=== PATIENT | female | born 1980 | race Caucasian/White ===

== ENCOUNTER 2025-05-03 14:05 | Outpatient (AMB) | payer OTHER, SELFPAY ==
--- OUTSIDE RECORDS SUMMARY | 2025-05-02 15:00 | XMS_ITS | Encounter Summary ---
Author Organization [facility] Address [address] [facility] [address] [place] [address] Phone Care Team Providers Care Bulk Picker Name Role Phone Chavez Hunter MD Unavailable [email or web address] Neli Padilla MD Primary Care Provider [phone] Encounter Details Date Type Department Care Team (Late st Contact Info) Description 05/02/2025 3:00 PM EST Telemedicine [facility] [address] [place] [address] Layla Lea, [employer] [address] [facility] [place] [address] [email or web address] Syncope, unspecified syncope type (Primary Dx) Social History Tobacco Use Types Packs/Day Years Used Date Smoking Tobacco: Every Day Cigarettes 0.3 23.6 Started: 09/2001 Smokeless Tobacco: Never Alcohol Use Standard Drinks/Week Comments Never 0 (1 standard drink = 0.6 oz pur e alcohol) few times per year at most Child or Family Care Answer Date Record ed Do you have problems with on e of the following making it difficult for you to work, study, or receive health care? Yes 01/03/2021 Education Answer Date Recorded Are you interested in more education? Not on constance e 01/07/2023 Are you concerned about learning? Not on file 01/07/2023 No 01/07/2023 No 01/07/2023 Food Answer Date Recorded Within the past 6 months we worried whether our food would run out before we got money to buy more. Never True 01/03/2021 Within the past 6 months the food we bought just didn't last and we didn't have enough money to get more. Never True Residential Stability Answer Date Recor ded What is your housing situation today? I have farhan sing 01/03/2021 How many times have you move d in the past 12 months? Zero (I did not move) 01/03/2021 06 Are you worried that in t he next 2 months, you may not have your own housing to live in? No 01/03/2021 Paying for Meds Answer Date Recorded Do you have trouble paying for medicines? Yes 01/03/2021 Paying Utility Bills Answer Date Record ed Do you have trouble paying your heating or elect ricity bill? No 01/03/2021 Transportation Answer Date Recorded Has the lack of transportati on kept you from medical appointments or from getting medications? No 01/03/2021 Unemployment Answer Date Recorded Are you currently unemployed or working on a part-time or temporary basis, and looking for work? No 01/03/2021 Digital Access Answer Date Recorded No 11/22/2022 No 11/22/2022 Reliable internet access at home? Not on file 11/22/2022 Device with a working camera? Not on file Intimate Partner Violence Answer Date R ecorded Are you denied basic needs s uch as food, clothing, or medical care? No 02/13/2024 In the past 12 months have y ou been in a relationship with a person who hurts, threatens, or tries to control you? No 02/13/2024 Are you denied basic needs s uch as food, clothing, or medical care? No 02/13/2024 In the past 12 months have y ou been in a relationship with a person who hurts, threatens, or tries to control you? No 02/13/2024 Comments No Sex and Gender Information Value Date Recorded Sex Assigned at Female 01/03/2021 8:09 AM EDT Legal Sex Female 9:18 PM EDT Gender Identity Female 01/03/2021 8:09 AM EDT Sexual Orientation Straight 01/03/2021 8: 09 AM EDT documented as of this encounter Patient Instructions * Patient Instructions* Layla Lea CNP - 05/02/2025 3:00 PM EST [facility] You were evaluated by [facility]. If you have any additional questions after your visit, please call [facility] Careat [phone] between the hours of 9am-9pm. If you wish to be evaluated in person for ongoing symptoms, please contact your Primary Care Physician or visit a [facility]gent Care site. [email or web address] in this encounter Progress Notes * Layla Lea CNP - 05/02/2025 3:00 PM EST Images from the original note were not included. Subjective: Patient ID: Monica Don is a 44 y.o. female. I obtained verbal consent from the patient or their proxy to record this visit for purposes of producing a draft of the encounter documentation. Monica Don is a 44 year old female presents with dizziness, headache and fainting. She experienced an episode of dizziness and fainting last night around 10:30 PM after eating dinner late. Upon standing, she felt foggy, with echoing sounds and clogged ears. Attempting to yawn to clear her ears,she became very dizzy, and her vision went completely black. She sat down, feeling her head spinning and foggy, and later attempted to go upstairs but fell, hitting her head on the wall and briefly losing consciousness. Her boyfriend found her and placed her in a supine position. She did not experience head pain but felt out of it, and her ears remained clogged and foggy. This morning, she managed to get her son to school but continued to feel as if she was underwater, with her ears feeling thesame. Head movement exacerbated her symptoms, causing her vision to go black, and she experienced chest pain on the right side, which has since resolved. She initially thought the chest pain was indigestion. she experienced pain in the back of her neck, which she attributed to a headache, and took her nighttime medications, including prazosin, hydroxyzine, and two Tylenol, about half an hour before the dizziness began. She continues to feel very dizzy, and feeling like she might black out again. She reports no history of blood clots or cardiac issues and describes this as random occurrence. She has high cholesterol. She denies nausea or vomiting, which she typically experiences with vertigo,a condition she has had in the past. She has been experiencing pain in her right leg, from the middle thigh to the hip, over the past few days, which she attributes to compensating for a knee issue. She is recovering from a head cold that lasted a couple of weeks. She reports no speech changes. Sheexperiences numbness and tingling in her hands, which she attributes to carpal tunnel syndrome. Pertinent negatives: seizure activity, nausea, vomiting, amnesia, weakness/numbness, trouble movingeyes, difficulty with speech or ambulation, clear rhinorrhea, ear discharge, neck stiffness, anticoagulation, drug/etoh intoxication during injury, or h/o serious head injury or concussions. Patient Active Problem List: Fibromyalgia Spondylosis of cervical region without myelopathy or radiculopathy Occipital neuralgia of left side Lumbar radiculitis Low back pain Tear of medial meniscus of right knee, current Right carpal tunnel syndrome Localized osteoarthritis of left knee PTSD (post-traumatic stress disorder) Bipolar affective disorder in remission Endometriosis Hyperhidrosis Acute hepatitis Right upper quadrant pain Menorrhagia with irregular cycle Dysmenorrhea Gallbladder disease Calculus of gallbladder and bile duct without cholecystitis or obstruction Current Outpatient Medications Ordered in [facility]: atorvastatin (LIPITOR) 10 MG tablet, Take 1 tablet (10 mg total) by mouth daily. hydrOXYzine (VISTARIL) 25 MG capsule, Take 25 mg by mouth nightly at bedtime. levothyroxine (SYNTHROID, LEVOTHROID) 175 MCG tablet, Take 1 tablet (175 mcg total) by mouth every morning. prazosin (MINIPRESS) 1 MG capsule, Take 1 mg by mouth nightly at bedtime. ZOLOFT 25 mg tablet, Take 25 mg by mouth daily. Allergy: -- Clarithromycin -- Swelling -- Trouble breathing, very significant swelling Other reaction(s): hives anaphylactic -- Erythromycin -- Hives and Rash -- difficulty breathing -- Latex -- Hives and Rash -- hives difficulty breathing Review of Systems Eyes: Positive for unexpected vision change. Cardiovascular: Positive for chest pain (resolved). Gastrointestinal: Positive for nausea. Negative for diarrhea and vomiting. Neurological: Positive for dizziness, syncope and headaches. Musculoskeletal: Positive for neck pain. There were no vitals filed for this visit. Objective: Physical Exam Constitutional: General: She is not in acute distress. Appearance: Normal appearance. She is not ill-appearing or toxic-appearing. HENT: Head: Normocephalic and atraumatic. Right Ear: Hearing normal. Left Ear: Hearing normal. Nose: Nose normal. Mouth/Throat: Lips: Drew. Pulmonary: Effort: Pulmonary effort is normal. No respiratory distress. Comments: Speaking in full sentences. No audible wheezing. Neurological: General: No focal deficit present. Mental Status: She is alert and oriented to person, place, and time. Psychiatric: Attention and Perception: Attention normal. Mood and Affect: Mood normal. Behavior: Behavior normal. Behavior is cooperative. Thought Content: Thought content normal. Judgment: Judgment normal. No results found for this visit on 05/02/25. Procedure: Procedures Assessment/Plan: Diagnosis Plan 1. Syncope, unspecified syncope type Assessment and Plan: 44 y.o female presents with acute episode of dizziness and syncope with brief loss of consciousness, occurring after standing up last night after dinner around 10:30pm. Symptoms include foggy head, echoing sounds, dizziness, and blacking out vision. No history of cardiac issues or blood clots. Symptoms persist with movement, causing black tunnel vision. No nausea, vomiting, or speech changes. Recent head cold may contribute to ear pressure and imbalance. On virtual exam, patient is alert and oriented x3, no acute distress, no pallor/diaphoresis and communicating appropriately in full sentences without mental status changes. Discussed differential diagnosis including but not limited to vasovagal syncope, vertigo, vestibular migraine, meniere's disease, stroke, cerebrovascular or cardiopulmonary etiology. Given presentation with acute onset on dizziness, vision and hearing changes and syncope episode, recommended further evaluation at emergency room for brain imaging (MRI or CT scan) to rule out severe concerns such as TIA or cardiopulmonary etiology. Advised use of hlqa-ndo-drbasut medications like Tylenol or ibuprofen for headache management. Patient agrees to proceed to [facility] ER for further evaluation. Follow-up, supportive care, ED precautions provided verbally and in AVS. Patient/guardian verbalized understanding of/agreement with assessment & plan; stated all questions answered. This telemedicine encounter was conducted virtually using HIPAA compliant videoconferencing technology. Portions of the exam reflect limitations in the virtual environment and may be limited to camera quality. documented in this encounter Plan of Treatment Upcoming Encounters Date Type Department Care Team (Late st Contact Info) Description 05/05/2025 3:40 PM EST Office Visit [facility] [address] [facility] [address] [place] [address] Neli Padilla MD [address] [facility] [address] [place] [address] [email or web address] documented as of this encounter Visit Diagnoses Diagnosis Syncope, unspecified syncope type- Primary documented in this encounter Additional Health Concerns Assessment Noted Time PHQ-2 Depression Total Score: 2 01/04/20 21 7:54 AM EDT documented as of this encounter Care Teams Bulk Picker Relationship Specialty Start Date End Date Neli Padilla MD [address] [facility] [address] [place] [address] PCP - General Family Medicine 10/04/20 Chavez Hunter MD [email or web address] Historical LMR Provider 04/17/17 documented as of this encounter Additional Source Comments The information contained in this document represents components of the legal health record. It is not the complete legal health record.[facility]
--- NOTE | 2025-05-03 14:06 | AM.OFFWIN_ITS ---
Intake Vital Signs 05/03/25 14:13 Height 5 ft 6 in Weight 233 lb BMI 37.6 BP 112/72 Blood Pressure Location Lt brachial Position Sitting Pulse 73 Pulse Source Pulse Oximeter Temp 98.5 F Temp Source Oral Pulse Oximetry (%) 96 Oxygen Delivery Method Room Air Intake Visit Reasons: EP Dizziness, right side chest and shoulder pain Intake Note: pt presents with dizziness, right chest pain going into shoulder and muffled hearing after a fall 2 nights ago. states that she was having a normal evening and suddenly had black vision while going upstairs to bed and doesn't recall passing out - boyfriend saw her fall. States she went to ER- left after 17 hrs. Allergies clarithromycin (From BIAXIN) Allergy (Severe, Verified 05/03/25 14:13) ANAPHYLAXIS latex (LATEX) Allergy (Severe, Verified 05/03/25 14:13) SEVERE RASH Medication List - Last Reconciled 05/03/25 by Nazia Solano PA-C atorvastatin 10 mg PO DAILY hydroxyzine pamoate 25 mg PO DAILY PRN levothyroxine 175 mcg PO QAM prazosin 1 mg PO BEDTIME sertraline 25 mg PO DAILY Do you need a note to return to daycare/school/sports/work: Yes HPI HPI Comments History of Present Illness Details History of Present Illness - The patient is a 44-year-old female pr esenting with syncope, dizziness, temporary loss of vision, right-sided chest pain, and muffled hearing following a fall. she is not on a blood thinner. - The patient experienced a witnessed sy ncopal episode two nights ago while going upstairs to bed, resulting in a fall and head trauma. She had a normal day, eating and drinking like she normally does. Denies diabetes. - The patient hit her head on the wall d uring the fall, resulting in brief loss of consciousness, less than 1 minute by her boyfriends estimate - The patient reports persistent dizzine ss since the fall, with episodes of tunnel vision and blackout vision when turning her head to the left or looking up. - The patient describes chest pain radia ting to the shoulder, which she initially attributed to indigestion or high blood pressure. - The patient reports muffled hearing fo llowing the fall. - The patient has a history of a brain i njury from a previous head trauma years ago, which also resulted in black vision and syncope. - The patient had a virtual visit with h er primary care provider yesterday, who advised an emergency room visit for imaging, but she experienced a prolonged wait of 17 hours at [facility] ED without receiving any care so she left without treatment. Review of Systems - Neurological: Reports dizziness, black out vision, and muffled hearing. Denies any recent episodes of syncope since the initial fall. - Cardiovascular: Reports right-sided ch est pain radiating to the shoulder. Denies palpitations or orthopnea. All systems reviewed and are unremarkable except as noted in HPI Physical Exam General: Cooperative, healthy appearing, comfortable, no acute distress and well developed Orientation: Patient oriented x3 Limitations: Limitations noted when turning head to the left or looking up, causing dizziness and black vision Head: Normal to inspection, but history of head injury from a fall Ears: Muffled hearing noted after a fall Nose: Normal External nose present Face and sinus: Normal facial exam Eyes: Appearance normal, both eyes and all related structures, no nystagmus Neck: Normal visual inspection Respiratory: Normal respiratory effort and able to speak in complete sentences. Clear to auscultation throughout, no wheezes, rales and rhonchi. Cardiac: Regular rate and rhythm, Normal S1 and S2, no murmurs, rubs or gallops Skin: No rashes or lesions noted Neuro: Patient oriented x3, gait normal, but dizziness and black vision noted with certain head movements Extremities: Normal to inspection Physical Exam Vital Signs: Last Vital Signs Temp 98.5 F 05/03/25 14:13 Pulse 73 05/03/25 14:13 Pulse Ox 96 05/03/25 14:13 Oxygen Delivery Method Room Air 05/03/25 14:13 BMI result Body Mass Index 37.6 Assessment & Plan Assessment & Plan (1) Syncope: Code(s): R55 - Syncope and collapse Qualifiers: Syncope type: unspecified Qualified Code(s): R55 - Syncope and collapse Plan: Assessment and Plan Syncope, dizziness and temporary loss of vision - VSS, heart rate regular, didn't get EKG based on auscultation of regular rate for 1 minute, pt well appearing, PE unremarkable. - The patient experienced a syncopal episode likely related to head trauma. - A head CT is recommended to rule out any intracranial injury. - Given the history of head injury and previous brain trauma, a head CT is crucial to assess for any acute changes. - Patient will get a ride to the [facility] ED, called [facility] with expect, spoke to GILDA Bronson. Patient was informed and verbally consented to the use of an ambient scribe for clinic note documentation during this visit. (2) Loss of vision: Code(s): H54.7 - Unspecified visual loss Plan: as above Coding Level of Care Code New Pt Level 5 (70268) Diagnoses Syncope, unspecified syncope type R55 Syncope type: unspecified Loss of vision H54.7
[2025-05-03 14:13] VITALS: BP 112/72; PULSE 73; TEMP 36.9; O2SAT 96; BMI 37.6
--- OUTSIDE RECORDS SUMMARY | 2025-05-03 15:08 | XMS_ITS | Encounter Summary ---
Author Organization [facility] Address [address] [place] [address] Phone Care Team Providers Care Crop Production Advisor Name Role Phone Chavez Hunter MD Unavailable [email or web address] Neli Padilla MD Primary Care Provider [phone] Reason for Visit * Reason Comments Head Injury Chest Pain Encounter Details Date Type Department Care Team ([facility] Contact Info) Description 05/03/2025 3:08 PM EST Emergency [facility] [address] [place] [address] Social History Tobacco Use Types Packs/Day Years [...] your housing situation today? I have farhan ortega 01/03/2021 How many times have you move [...] AM EDT documented as of this encounter Last Filed Vital Signs Vital Sign Reading Time Taken Comments Blood Pressure 129/86 05/03/2025 3:28 PM EST Pulse 71 05/03/2025 3:28 PM EST Temperature 36 C (96.8 F) 05/03/2025 3:28 PM EST Respiratory Rate 19 05/03/2025 3:28 PM EST Oxygen Saturation 98% 05/03/2025 3:28 PM EST Inhaled Oxygen Concentration - - Weight 104.3 kg (230 lb) 05/03/2025 3:28 PM EST Height 167.6 cm (5' 6 ) 05/03/2025 3:28 PM EST Body Mass Index 37.12 05/03/2025 3:28 PM EST documented in this encounter Functional Status * Calculated C-SSRS Risk Score (Lifetime/Recent) Answer Date of Assessment Author No Risk Indicated 05/03/2025 3:30 PM EST Celena Benites ma, RN * [place] Suicide Severity Rating Scale (Screener/Recent Self-Report) Question Answer Date of Assessment Author 1. Wish to be (Past 1 Month) No 025 3:30 PM EST Emy Benites RN 2. Non-Specific Active Suici isabel Thoughts (Past 1 Month) No 05/03/2025 3:30 PM EST Emy Benites RN 6. Suicidal Behavior (Lifetime) No 3:30 PM EST Emy Benites RN documented as of this encounter ED Notes * Emy Benites RN - 05/03/2025 3:22 PM EST Pt here for eval of near syncope. Friday pt noted dizziness with standing then vision went tunnel vision then got lj and lj. At this time pt also noted C that starts on L side of chest,radiating through shoulder into base of neck. Pt attempted to go upstairs one step when she fell, striking the back of her head. Positive LOC approx less than 1 minute. No thinners. Friday afternoon, pt seen at [facility] ER, however, she left the ER this afternoon as she never seen aside from triage. On arrival, pt awake A&Ox4, NAD. Report with turning her head up is when her vision goes again. Pt reports some dizziness but improving since incident. No N/V. Headache rates 8/10, no tenderness opr obvious injury to posterior head. Pupils PERRLA. Neuro assessment intact. Resp even non labored, speaking in clear full sentences, managing secretions. Does still endorse CP radiating from L chest into L shoulder. Denies any additional concerns at this time. Appreciative of care. documented in this encounter Plan of Treatment Upcoming Encounters Date Type Department Care Team (Late st Contact Info) Description 05/05/2025 3:40 PM EST Office Visit [facility] [address] [place] [address] Neli Padilla MD [address] [facility] [facility] [address] [place], [place] [id number] [email or web address] Pending Results Name Type Priority Associated Diagnoses Date /Time Basic Metabolic Panel (BMP) Lab STAT 05/03/2025 4:10 PM EST Scheduled Orders Name Type Priority Associated Diagnoses Orde r Schedule Basic Metabolic Panel (BMP) Lab STAT Once for 1 Occur rences starting 05/03/2025 until 05/03/2025 Human Chorionic Gonadotropin (HCG), Urine Lab STAT Once f or 1 Occurrences starting 05/03/2025 until 05/03/2025 documented as of this encounter Procedures Procedure Name Priority Date/Time Associated Diagnosis Comments CBC AND DIFFERENTIAL STAT 05/03/2025 4:10 PM EST CBC AND DIFFERENTIAL STAT 05/03/2025 4:10 PM EST TROPONIN STAT 05/03/2025 4:[address] CERVICAL SPINE WITHOUT CONTRAST Routine 05/03/2025 4:[address] HEAD WITHOUT CONTRAST STAT 05/03/2025 4:00 PM EST documented in this encounter Results * CBC and Differential (05/03/2025 4:10 PM EST) WBC 10.80 4.00 - 11.00 K/uL 05/03/2025 4:47 PM [facility] RBC 4.92 4.00 - 5.20 M/uL 05/03/2025 4:47 PM [facility] Hemoglobin 14.4 12.0 - 16.0 g/dL 05/03/2025 4:47 PM [facility] Hematocrit 43.8 36.0 - 46.0 % 05/03/2025 4:47 PM [facility] MCV 89.0 80.0 - 100.0 fL 05/03/2025 4:47 PM [facility] MCH 29.3 27.0 - 31.0 pg 05/03/2025 4:47 PM [facility] MCHC 32.9 32.0 - 36.0 g/dL 05/03/2025 4:47 PM [facility] MPV 9.4 8.4 - 12.0 fL 05/03/2025 4:47 PM [facility] RDW-CV 14.3 11.5 - 14.5 % 05/03/2025 4:47 PM [facility] PLT 321 150 - 450 K/uL 05/03/2025 4:47 PM [facility] Neutrophils 54.2 % 05/03/2025 4:47 PM [facility] Lymphocytes 35.9 % 05/03/2025 4:47 PM [facility] Monocytes 6.3 % 05/03/2025 4:47 PM [facility] Eosinophils 2.9 % 05/03/2025 4:47 PM [facility] Basophils 0.5 % 05/03/2025 4:47 PM [facility] Imm Grans 0.2 % 05/03/2025 4:47 PM [facility] NRBC 0.0 <=0.0 /100 WBCs 05/03/2025 4:47 PM [facility] Absolute Neutrophils 5.86 1.92 - 7.60 K/uL 05/03/2025 4:47 PM [facility] Absolute Lymphocytes 3.88 0.72 - 4.10 K/uL 05/03/2025 4:47 PM [facility] Absolute Monocytes 0.68 0.16 - 1.10 K/uL 05/03/2025 4:47 PM [facility] Absolute Eosinophils 0.31 0.00 - 0.50 K/uL 05/03/2025 4:47 PM [facility] Absolute Basophils 0.05 0.00 - 0.15 K/uL 05/03/2025 4:47 PM [facility] Absolute Imm Grans 0.02 0.00 - 0.09 K/uL 05/03/2025 4:47 PM [facility] Absolute NRBC 0.00 <=0.00 K cells/uL 05/03/2025 4:47 PM [facility] Absolute Neutrophils 5.86 1.92 - 7.60 K/uL 05/03/2025 4:47 PM [facility] Comment:Automated cell count . Manual ANC may differ if performed. Diff Type Auto 05/03/2025 4:47 PM [facility] Blood (Blood) Venipuncture / Unknown 05/03/2025 4:10 PM EST 05/03/2025 4:42 PM EST us Tania Khurram LAB BLOOD BKR ORDERABLES Final R esult Performing Organization Address City/[facility]/ZIP Co de Phone Number [address] [address] * Troponin (05/03/2025 4:10 PM EST) Troponin-T HS Gen5 <6 0 - 9 ng/L 05/03/2025 5:02 PM [facility] Blood (Blood) Venipuncture / Unknown 05/03/2025 4:10 PM EST 05/03/2025 4:42 PM EST [facility] LAB BLOOD BKR ORDERABLES Final R esult Performing Organization Address City/[facility]/ZIP Co de Phone Number [address] [address] * CT CERVICAL SPINE WITHOUT CONTRAST (05/03/2025 4:00 PM EST) Anatomical Region Laterality Modality C-spine Computed Tomogra phy 05/03/2025 4:32 PM EST Impressions 05/03/2025 5:02 PM EST 1. No acute intracranial findings. 2. No acute fracture or traumatic malalignment of the cervical spine. Narrative 05/03/2025 5:[address] HEAD WITHOUT CONTRAST, CT CERVICAL SPINE WITHOUT CONTRAST Referring clinician's provided indication for this examination in [facility]: * Head trauma, mod-severe TECHNIQUE: CTs of the head and cervical spine were performed without intravenous contrast using tailored dose modulation techniques. Images were reconstructed in the axial, coronal, and sagittal planes. COMPARISON: None FINDINGS: HEAD: Brain Parenchyma: No midline shift, mass effect, parenchymal hemorrhage, or evidence of acute territorial infarct. Ventricular System and Extra-Axial Spaces: No extra-axial fluid collections. Basal cisterns are patent. No hydrocephalus. Osseous and Extracranial Structures: No calvarial fracture or significant soft tissue hematoma. No significant paranasal sinus disease. No orbital abnormality. CERVICAL SPINE: Alignment and Vertebrae: No traumatic malalignment. Vertebral bodies and posterior elements are intact. Discs and Endplates: No disc height loss or endplate irregularities. Other Findings: None. Procedure Note Kemi Chirinos MD - 05/03/2025 CT HEAD WITHOUT CONTRAST, CT CERVICAL SPINE WITHOUT CONTRAST Referring clinician's provided indication for this examination in [facility]: *Head trauma, mod-severe TECHNIQUE: CTs of the head and cervical spine were performed withoutintravenous contrast using tailored dose modulation techniques. Imageswere reconstructed in the axial, coronal, and sagittal planes. COMPARISON: None FINDINGS: HEAD: Brain Parenchyma: No midline shift, mass effect, parenchymal hemorrhage,or evidence of acute territorial infarct. Ventricular System and Extra-Axial Spaces: No extra-axial fluidcollections. Basal cisterns are patent. No hydrocephalus. Osseous and Extracranial Structures: No calvarial fracture or significantsoft tissue hematoma. No significant paranasal sinus disease. No orbitalabnormality. CERVICAL SPINE: Alignment and Vertebrae: No traumatic malalignment. Vertebral bodies andposterior elements are intact. Discs and Endplates: No disc height loss or endplate irregularities. Other Findings: None. IMPRESSION: 1. No acute intracranial findings. 2. No acute fracture or traumatic malalignment of the cervical spine. us Tania Paulson DO IMG CT XSPECIALTY ORDERABLES Fin al Result * CT HEAD WITHOUT CONTRAST (05/03/2025 4:00 PM EST) Anatomical Region Laterality Modality Head Computed Tomogra phy 05/03/2025 4:32 PM EST Impressions 05/03/2025 5:02 PM EST 1. No acute intracranial findings. 2. No acute fracture or traumatic malalignment of the cervical spine. Narrative 05/03/2025 5:[address] HEAD WITHOUT CONTRAST, CT CERVICAL SPINE WITHOUT CONTRAST Referring clinician's provided indication for this examination in [facility]: * Head trauma, mod-severe TECHNIQUE: CTs of the head and cervical spine were performed without intravenous contrast using tailored dose modulation techniques. Images were reconstructed in the axial, coronal, and sagittal planes. COMPARISON: None FINDINGS: HEAD: Brain Parenchyma: No midline shift, mass effect, parenchymal hemorrhage, or evidence of acute territorial infarct. Ventricular System and Extra-Axial Spaces: No extra-axial fluid collections. Basal cisterns are patent. No hydrocephalus. Osseous and Extracranial Structures: No calvarial fracture or significant soft tissue hematoma. No significant paranasal sinus disease. No orbital abnormality. CERVICAL SPINE: Alignment and Vertebrae: No traumatic malalignment. Vertebral bodies and posterior elements are intact. Discs and Endplates: No disc height loss or endplate irregularities. Other Findings: None. Procedure Note Kemi Chirinos MD - 05/03/2025 CT HEAD WITHOUT CONTRAST, CT CERVICAL SPINE WITHOUT CONTRAST Referring clinician's provided indication for this examination in [facility]: *Head trauma, mod-severe TECHNIQUE: CTs of the head and cervical spine were performed withoutintravenous contrast using tailored dose modulation techniques. Imageswere reconstructed in the axial, coronal, and sagittal planes. COMPARISON: None FINDINGS: HEAD: Brain Parenchyma: No midline shift, mass effect, parenchymal hemorrhage,or evidence of acute territorial infarct. Ventricular System and Extra-Axial Spaces: No extra-axial fluidcollections. Basal cisterns are patent. No hydrocephalus. Osseous and Extracranial Structures: No calvarial fracture or significantsoft tissue hematoma. No significant paranasal sinus disease. No orbitalabnormality. CERVICAL SPINE: Alignment and Vertebrae: No traumatic malalignment. Vertebral bodies andposterior elements are intact. Discs and Endplates: No disc height loss or endplate irregularities. Other Findings: None. IMPRESSION: 1. No acute intracranial findings. 2. No acute fracture or traumatic malalignment of the cervical spine. Tania Paulson DO IMG CT HEAD/NECK Final Result documented in this encounter Visit Diagnoses Not on filedocumented in this encounter Administered Medications Active Administered Medications - up to 3 most recent administrations Medication Order MAR Action Action Date Dose Rate Site sodium chloride (NS) 0.9 % syringe flush 3 mL 3 mL, Intravenous, As needed, line care, Starting on Fri05/03/25 at 1544, Per Institutional IV Line Care Policy. documented in this encounter Additional Health Concerns Assessment Noted Time PHQ-2 Depression Total Score: 2 01/04/20 21 7:54 AM EDT documented as of this encounter Care Teams Crop Production Advisor Relationship Specialty Start Date End Date Neli Padilla MD [address] [place] [address] [email or web address] PCP - General Family Medicine 10/04/20 Chavez Hunter MD [email or web address] Historical LMR Provider 04/17/17 documented as of this encounter Additional Source Comments The information contained in this document represents components of the legal health record. It is not the complete legal health record.[facility]
--- OUTSIDE RECORDS SUMMARY | 2025-05-03 17:07 | XMS_ITS | Clinical Summary ---
Author Organization [facility] Address [address] [place] [address] Care Team Providers Care Scaler Packer Name Role Phone Pao Badillo Primary Care Provider Unavailabl e Allergies Active Allergy Reactions Severity Noted Date Comments Clarithromycin 07/08/2017 Erythromycin 07/08/2017 Latex 07/08/2017 Active Problems Problem Noted Date Abnormal Pap smear of cervix 07/08/2017 Overview: 2006: abnormal 2015: normal pap Family History Medical History Relation Name Comments Alcohol Abuse Father cancer unknown Father hyperlipidemia Father Depression Mother Thyroid Disorder Mother endometriosis Mother hyperlipidemia Mother tachycardia Mother CA Breast Paternal Grandmother Diabetes Paternal Grandmother ovarian cancer Paternal Grandmother Relation Name Status Comments Father Mother Paternal Grandmother Social History Tobacco Use Types Packs/Day Years Used Date Smoking Tobacco: Never Assessed Sex Assigned at Date Recorded Not on file Plan of Treatment Health Maintenance Due Date Last Done Comments Covid-19 Vaccine (#1) 05/04/1983 TOBACCO CHECK/ADVISE 2000 DTAP/TDAP/TD (1 - Tdap) 2001 CHOLESTEROL SCREENING 2002 CERVICAL CANCER SCREENING 11/02/2003 BASELINE HEALTH EXAM 40-64 2022 MAMMOGRAM 2022 BMI CHECK/ADVISE 06/30/2024 INFLUENZA (#1) 2025 PNEUMOCOCCAL VACCINE FOR HIGH RISK PATIENTS (#1) 11/01 Care Teams Scaler Packer Relationship Specialty Start Date End Date Pao Badillo PCP - General Family Practice 06/18/17
--- OUTSIDE RECORDS SUMMARY | 2025-05-03 17:07 | XMS_ITS | Encounter Summary ---
Author Organization [facility] Address [address] [place] [address] Phone Care Team Providers Care Painter Spring Name Role Phone Chavez Hunter MD Unavailable [email or web address] Neli Padilla MD Primary Care Provider [phone] Encounter Details Date Type Department Care Team (Late st Contact Info) Description 05/03/2025 Procedure Pass [facility], Ct Scan - [address] [address] Social History Tobacco Use Types Packs/Day Years [...] AM EDT documented as of this encounter Functional Status * Calculated C-SSRS Risk Score (Lifetime/Recent) Answer Date of Assessment Author No Risk Indicated 05/03/2025 3:30 PM EST Celena Benites ma, RN * [place] Suicide Severity Rating Scale (Screener/Recent Self-Report) Question Answer Date of Assessment Author 1. Wish to be (Past 1 Month) No 025 3:30 PM EST Emy Benites RN 2. Non-Specific Active Suici isabel Thoughts (Past 1 Month) No 05/03/2025 3:30 PM EST Emy Benites RN 6. Suicidal Behavior (Lifetime) No 3:30 PM EST Emy Benites RN documented as of this encounter Plan of Treatment Upcoming Encounters Date Type Department Care Team (Late st Contact Info) Description 05/05/2025 3:40 PM EST Office Visit [facility] [address] [place] [address] Neli Padilla MD [address] [address] [email or web address] documented as of this encounter Visit Diagnoses Not on filedocumented in this encounter Additional Health Concerns Assessment Noted Time PHQ-2 Depression Total Score: 2 01/04/20 21 7:54 AM EDT documented as of this encounter Care Teams Painter Spring Relationship Specialty Start Date End Date Neli Padilla MD [address] [address] [email or web address] PCP - General Family Medicine 10/04/20 Chavez Hunter MD [email or web address] Historical LMR Provider 04/17/17 documented as of this encounter Additional Source Comments The information contained in this document represents components of the legal health record. It is not the complete legal health record.[facility]
--- OUTSIDE RECORDS SUMMARY | 2025-05-03 17:07 | XMS_ITS | Encounter Summary ---
Author Organization [facility] Address [address] [place] [address] Phone Care Team Providers Care Patient Accounts Coordinator Name Role Phone Chavez Hunter MD Unavailable [email or web address] Neli Padilla MD Primary Care Provider [phone] Encounter Details Date Type Department Care Team (Late st Contact Info) Description 02/13/2024 Procedure Pass [place] Admitting Dept - Virtual Department [address] [place] [address] Social History Tobacco Use Types Packs/Day Years [...] AM EDT documented as of this encounter Plan of Treatment Upcoming Encounters Date Type Department Care Team (Late st Contact Info) Description 05/05/2025 3:40 PM EST Office Visit [facility] [address] [place] [address] Neli Padilla MD [address] [address] [email or web address] documented as of this encounter Visit Diagnoses Not on filedocumented in this encounter Additional Health Concerns Assessment Noted Time PHQ-2 Depression Total Score: 2 01/04/20 21 7:54 AM EDT documented as of this encounter Care Teams Patient Accounts Coordinator Relationship Specialty Start Date End Date Neli Padilla MD [address] [address] PCP - General Family Medicine 10/04/20 Chavez Hunter MD [email or web address] Historical LMR Provider 04/17/17 documented as of this encounter Additional Source Comments The information contained in this document represents components of the legal health record. It is not the complete legal health record.[facility]
--- OUTSIDE RECORDS SUMMARY | 2025-05-03 17:07 | XMS_ITS | Encounter Summary ---
Author Organization [facility] Address [address] [place] [address] Care Team Providers Care Wind Tunnel Mechanic Name Role Phone Pao Badillo Primary Care Provider Unavailabl e Encounter Details Date Type Department Care Team Description 06/20/2017 Release of Information Medical Records [address] [place] [id number] Abstract, Provider Social History Tobacco Use Types Packs/Day Years Used Date Smoking Tobacco: Never Assessed Sex Assigned at Date Recorded Not on file documented as of this encounter Plan of Treatment Not on file documented as of this encounter Visit Diagnoses Not on filedocumented in this encounter Care Teams Wind Tunnel Mechanic Relationship Specialty Start Date End Date Pao Badillo PCP - General Family Practice 06/18/17 documented as of this encounter
--- OUTSIDE RECORDS SUMMARY | 2025-05-03 17:07 | XMS_ITS | Clinical Summary ---
Author Organization [facility] Address [address] [place] [address] Phone Care Team Providers Care Software Quality Engineer Name Role Phone Chavez Hunter MD Unavailable [email or web address] Neli Padilla MD Primary Care Provider [phone] Allergies Active Allergy Reactions Criticality Noted Date Comments Clarithromycin Swelling High 09/18/2016 Trouble breathing, very significant swelling Other reaction(s): hives anaphylactic Erythromycin Hives,Rash High 07/08/2017 difficulty breathing Latex Hives,Rash High 09/18/2016 hives difficulty breathing Medications hydrOXYzine (VISTARIL) 25 MG capsule Take 25 mg by mouth nightly at bedtime. 5 Active ZOLOFT 25 mg tablet Take 25 mg by mouth daily. Active prazosin (MINIPRESS) 1 MG capsule Take 1 mg by mouth nightly at bedtime. Active atorvastatin (LIPITOR) 10 MG tablet Take 1 tablet (10 mg total) by mouth daily. 90 tablet 1 5 Active levothyroxine (SYNTHROID, LEVOTHROID) 175 MCG tabletIndication s:Hypothyroidism , unspecified type Take 1 tablet (175 mcg total) by mouth every morning. 90 tablet 5 Active levothyroxine (SYNTHROID, LEVOTHROID) 175 MCG tabletIndication s:Hypothyroidism , unspecified type TAKE 1 TABLET BY MOUTH EVERY DAY IN THE MORNING 30 tablet 04/12/20 25 Discontinu ed(Reorder ) Active Problems Problem Noted Date Diagnosed Date Gallbladder disease 10/30/2024 Assessment & Plan (10/30/2024 6:02 PM EDT): Will get repeat labs, no signs of acute obstruction currently. Will get another US and await referral to general surgery Calculus of gallbladder and bile duct without cholecystitis or obstruction 10/30/2024 Menorrhagia with irregular cycle 02/13/2024 Dysmenorrhea 02/13/2024 Acute hepatitis 12/05/2023 Assessment & Plan (12/06/2023 5:48 PM EDT): Patient with acute liver injury in a pattern that most closely resembles acute alcoholic hepatitis with AST 2x ALT however she adamantly denies any significant alcohol use. She denies any significant tylenol use (2 over past week), denies episode of heat stroke/exhaustion, syncope or other possible markers of a hypoprofusion event. Other etiologies such as viral, wilsons dx, autoimmune, and autoimmune will need to be evaluated. While her story of acute pain and nausea/vomiting with preceding intermittent pain is consistent with GB dx imaging and labs are not. CT shows normal portal flow making veno-occlusive dx not likely MRCP pending. Case d/w GI and gen sx Plan -Hep A, B, C testing is pending, EBV ordered as well -Ceruloplasmin pending -EDWARD, anit-sm and LMK1 abs pending -Ferratin and TIBC pending -Lipids and A1C ordered -clear liquids Observe overnight, NPO after 4am in case EGD is considered. Right upper quadrant pain 12/05/2023 Assessment & Plan (12/06/2023 12:03 AM EDT): She seems very comfortable now. Will monitor clinically, heating pad PRN Neg stewart on exam, neg during US as well. PTSD (post-traumatic stress disorder) 01/03/2021 Bipolar affective disorder in remission 01/04/20 21 Assessment & Plan (01/03/2021 3:00 PM EDT): Stable currently, continue therapy and current medications. Endometriosis 01/03/2021 Overview (01/03/2021): Diagnosed at age 20 Assessment & Plan (01/03/2021 2:59 PM EDT): Has failed many cnventional treatment. I would like for her to establish with gynecology, I have sent a referral in for her. Hyperhidrosis 01/03/2021 Assessment & Plan (01/03/2021 3:00 PM EDT): My best guess is that this is due to the Wellbutrin, as she started the Wellbutrin at the same time as the sweating started. It is a known side effect. However I am going to refer her over to dermatology to see if they can offer anything in addition. Localized osteoarthritis of left knee 12/20/2020 Assessment & Plan (12/20/2020 4:27 PM EDT): Problems with the left knee may be a lateral meniscal tear, patellofemoral disorder or a flare of osteoarthritis. She will have an x-ray of the left knee we will do an intra-articular corticosteroid injection. I will get back to her by phone call. I explained to her today if there is no sustained improvement we may need to do an MRI to rule out internal derangement. Also if it turns out that it is predominantly patellofemoral disorder then she may benefit from physical therapy with LowDye taping. Right carpal tunnel syndrome 08/23/2020 Assessment & Plan (08/23/2020 3:30 PM EST): Chronic moderately severe painful carpal tunnel syndrome due to median nerve compression will be treated with splinting at night as well as intralesional corticosteroid injection today. I also made an appointment to see , a well-respected local hand product distribution specialist. Tear of medial meniscus of right knee, current 0 09/29/2019 Assessment & Plan (11/16/2019 12:02 PM EDT): Acute flare of pain in the right knee will be treated today with intra-articular cortisone. Assessment & Plan (09/29/2019 9:57 AM EDT): Symptoms of pain and instability in the right knee are suggestive but not diagnostic of internal derangement perhaps a small meniscal tear. We will get a weightbearing x-ray and full set of knee x-rays but it is safe for her to come to the office and in the meantime she will continue to use the external knee support. Low back pain 07/29/2018 Assessment & Plan (07/29/2018 8:56 AM EST): No evidence of radiculopathy in this patient who presents with acute low back pain. No direct trauma. Most likely etiology is muscular strain. An x-ray today, start her on a Medrol Dosepak, avoid OTC NSAIDs, give her 28 pills of hydrocodone to be taken as 1 every 6 hours as needed Lumbar radiculitis 03/16/2018 Assessment & Plan (03/16/2018 5:46 PM EDT): Patient does have sacroiliac dysfunction and lumbar spondylosis as evidenced on previous x-rays which I reviewed with her today from 2016 showing mild bilateral sacroiliac osteoarthritis as well as degenerative disc disease and facet arthropathy of a mild nature at L4-5 and L5-S1. Her reports today of pain radiating down the left leg with tingling and numbness and the physical exam showing slight diminution of her left knee reflex with positive straight leg raising on the left is suggestive of a entrapped lumbar nerve root either from a disc osteophyte complex or a herniated disc. Given the severity of her symptoms, an MRI of the lumbar spine will be ordered. I will call her with these results and make appropriate recommendations after I review the study. Fibromyalgia 05/01/2017 Assessment & Plan (12/20/2020 4:28 PM EDT): Multiple tender points on exam, morning stiffness, poor sleep, and generalized fatigue are all compatible with though not diagnostic of active fibromyalgia which will continue to be treated with recommendations towards low inflammatory diet, weight reduction, good sleep hygiene, continuance of trazodone at bedtime, hydrocodone as needed and to make sure her thyroid function is normal. She will have lab work drawn today. Previous lab work was reviewed and more than 50% of this 32-minute visit was spent in [id number] conversation coordinating my care with out of her primary care physician and other subspecialists. No visits with results within 3 Month(s) from this visit. Latest known visit with results is: No results found for any previous visit. Assessment & Plan (08/23/2020 3:30 PM EST): Active but stable. She is to continue Flexeril 10 mg nightly as needed. Vitamin D supplements. I am giving her a short course of hydrocodone to help with the severe pain from her carpal tunnel. We talked about good sleep hygiene and weight reduction. Assessment & Plan (09/29/2019 9:57 AM EDT): Continues with generalized morning stiffness and pain. No worse. Refilled hydrocodone and cyclobenzaprine today. No new symptoms or symptoms of inflammatory arthropathy. Assessment & Plan (03/16/2018 5:44 PM EDT): Patient still has fatigue, poor sleep, multiple tender points on exam and quite a bit of morning stiffness. There is no synovitis on exam. We talked about fibromyalgia, history, treatment, need for cardiovascular improvement, weight reduction low inflammatory diet core strengthening and current medication regimen. I reinforced the need for her to take vitamin D every day. Assessment & Plan (09/10/2017 2:01 PM EDT): Active but stable on current medications. Multiple tender points still exists. Nighttime sleep as well as morning stiffness and generalized fatigue has improved. She is on a clear diet and she has a vocational trainer who is helping her work out and she goes several times a week for both resistance training as well as cardio. This is definitely had a positive affect. Greater than 50% of this 28 minute visit was spent in [id number] conversation with the patient going over natural history and treatment of fibromyalgia, strategies for continued healthy weight reduction, and restarting her home exercise program. all questions were answered. Assessment & Plan (05/01/2017 12:53 PM EDT): Patient has quite a bit of pain throughout her body. 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 She has to wear backpack and she is quite a bit of alcohol and stooping reaching bending and climbing and this does not help her overall condition at all. After full discussion of risks and benefits she will be administered a trigger point injection into the right subscapular bursa and the medial aspect of the right trapezius muscle as well as an intra-articular corticosteroid injection into the right shoulder. Her gabapentin was increased to 1200 mg at bedtime and diclofenac was discontinued and she was started on 1200 mg of Daypro daily. Other medications will remain unchanged. Spondylosis of cervical arturo on without myelopathy or radiculopathy 05/01/2017 Assessment & Plan (09/10/2017 2:01 PM EDT): Still active but without radiculopathy or myelopathy. Cervical stretches and strengthening were discussed with her. Assessment & Plan (05/01/2017 12:53 PM EDT): Trigger point injection will be given into the painful area for referred pain from the cervical spine. Occipital neuralgia of left side 05/01/2017 Assessment & Plan (05/01/2017 12:54 PM EDT): She will continue to use ice on this area on a when necessary basis as well as paying attention to appropriate sleep hygiene. Encounters Date Type Department Care Team Description 05/03/2025 3:08 PM EST Emergency [facility] [address] [place] [address] 05/03/2025 Procedure Pass [facility], Ct Scan - [address] [address] 05/03/2025 Procedure Pass [facility], Ct Scan - [address] [address] 05/02/2025 3:00 PM EST Telemedicine Merged With [facility] [address] [place] [address] Layla Lea CNP Syncope, unspecified syncope type (Primary Dx) 04/01/2025 Refill [facility] [address] [place] [address] Noemi Mckeon CNP Medication Refill from Last 3 Months Immunizations Immunization Administration Dates Next Due COVID-19 (Pre-04/21) Moderna Vaccine, mRNA, PF 11/06/2020,10/09/2020 INFLUENZA, SPLIT VIRUS, TRIV ALENT W/ PRESERVATIVE IM 04/14/2018,04/04/2016,04/20/2014,2011,04/04/2011,04/12/2010,04/15/2009 Influenza Quadrivalent Prese rvative Free IM 05/06/2021 Tdap 04/12/2010 Family History Medical History Relation Comments Thyroid disease Father Medullary thyroi d Breast cancer Paternal Grandmother Cervical cancer Paternal Grandmother Relation Status Comments Father Paternal Grandmother Social History Tobacco Use Types Packs/Day Years Used Date Smoking Tobacco: Every Day Cigarettes 0.3 23.6 Started: 09/2001 Smokeless Tobacco: Never Tobacco Cessation:Ready to Q uit: Not Asked; Counseling Given: Not Answered Alcohol Use Standard Drinks/Week Comments Never 0 [...] Orientation Straight 01/03/2021 8: 09 AM EDT Last Filed Vital Signs Vital Sign Reading [...] Mass Index 37.12 05/03/2025 3:28 PM EST Plan of Treatment Upcoming Encounters Date Type Department Care Team (Late st Contact Info) Description 05/05/2025 3:40 PM EST [facility] [address] [place] [address] Neli Padilla MD [address] [facility] [address] [place] [address] [email or web address] Health Maintenance Due Date Last Done Comments HEPATITIS A VACCINES (1 of 2 - Risk 2-dose series) 2001 PNEUMOCOCCAL VACCINES (0-49 years) (1 of 2 - PCV) 2001 Adult Td,Tdap Booster 04/12/2020 04/12/2010 DEPRESSION SCREENING 01/03/2022 01/03/2021 MAMMOGRAM 2022 PAP SMEAR 04/18/2024 04/18/2021 TSH LEVEL 12/05/2024 12/06/2023, 05/31, 03/25/2023, Additional history exists INFLUENZA VACCINE (#1) 2025 , 04/14/2018, 04/04/2016, Additional history exists COVID-19 VACCINE ( season) 2025 05/06/2021, 11/06/2020, 10/09/2020 SMOKING Hx and SMOKELESS TOBACCO SCREENING 05/02/2026 05/02/2025 SCREENING FOR DIABETES 10/28/2027 10/27/2024, 2024 HIV ONE-TIME SCREENING (18-65 YEARS) Completed 03/20/2023 HEPATITIS C SCREENING Completed 12/06/2023 , 12/06/2023, 12/06/2023 HIB VACCINES Aged Out No longer eligi ble based on patient's age to complete this topic MENINGOCOCCAL VACCINES (ACWY) Aged Out No longer eligible based on patient's age to complete this topic MENINGOCOCCAL VACCINES (B) Aged Out N o longer eligible based on patient's age to complete this topic Medical Devices Not on file Procedures Procedure Name Priority Date/Time Associated Diagnosis Comments CBC AND DIFFERENTIAL STAT 05/03/2025 4:10 PM EST TROPONIN STAT 05/03/2025 4:10 PM EST CBC AND DIFFERENTIAL STAT 05/03/2025 4:[address] CERVICAL SPINE WITHOUT CONTRAST Routine 05/03/2025 4:[address] HEAD WITHOUT CONTRAST STAT 05/03/2025 4:00 PM EST HEPATITIS C ANTIBODY, QUALITATIVE Routine 12/06/2023 6:02 AM EDT TSH WITH REFLEX Routine 12/06/2023 6:02 AM EDT PAP TEST Routine 04/18/2021 12:00 AM EDT from Last 3 Months or Most Recently Relevant to Health Maintenance Results * CBC and Differential (05/03/2025 4:10 PM EST) WBC 10.80 4.00 - 11.00 K/uL 05/03/2025 4:47 PM [facility] RBC 4.92 4.00 - 5.20 M/uL 05/03/2025 4:47 PM [facility] Hemoglobin 14.4 12.0 - 16.0 g/dL 05/03/2025 4:47 PM [facility] Hematocrit 43.8 36.0 - 46.0 % 05/03/2025 4:47 PM [facility] MCV 89.0 80.0 - 100.0 fL 05/03/2025 4:47 PM [facility] MCH 29.3 27.0 - 31.0 pg 05/03/2025 4:47 PM [facility] MCHC 32.9 32.0 - 36.0 g/dL 05/03/2025 4:47 PM [facility] MPV 9.4 8.4 - 12.0 fL 05/03/2025 4:47 PM [facility] RDW-CV 14.3 11.5 - 14.5 % 05/03/2025 4:47 PM [facility] PLT 321 150 - 450 K/uL 05/03/2025 4:47 PM [facility] Neutrophils 54.2 % 05/03/2025 4:47 PM [facility] Lymphocytes 35.9 % 05/03/2025 4:47 PM [facility] Monocytes 6.3 % 05/03/2025 4:47 PM [facility] Eosinophils 2.9 % 05/03/2025 4:47 PM [facility] Basophils 0.5 % 05/03/2025 4:47 PM [facility] Imm Grans 0.2 % 05/03/2025 4:47 PM [facility] NRBC 0.0 <=0.0 /100 WBCs 05/03/2025 4:47 PM [facility] Absolute Neutrophils 5.86 1.92 - 7.60 K/uL 05/03/2025 4:47 PM [facility] Absolute Lymphocytes 3.88 0.72 - 4.10 K/uL 05/03/2025 4:47 PM [facility] Absolute Monocytes 0.68 0.16 - 1.10 K/uL 05/03/2025 4:47 PM [facility] Absolute Eosinophils 0.31 0.00 - 0.50 K/uL 05/03/2025 4:47 PM [facility] Absolute Basophils 0.05 0.00 - 0.15 K/uL 05/03/2025 4:47 PM [facility] Absolute Imm Grans 0.02 0.00 - 0.09 K/uL 05/03/2025 4:47 PM [facility] Absolute NRBC 0.00 <=0.00 K cells/uL 05/03/2025 4:47 PM [facility] Absolute Neutrophils 5.86 1.92 - 7.60 K/uL 05/03/2025 4:47 PM [facility] Comment:Automated cell count . Manual ANC may differ if performed. Diff Type Auto 05/03/2025 4:47 PM [facility] Blood (Blood) Venipuncture / Unknown 05/03/2025 4:10 PM EST 05/03/2025 4:42 PM EST [employer] LAB BLOOD BKR ORDERABLES Final R esult Performing Organization Address City/[facility]/ZIP Co de Phone Number [address] [address] * Troponin (05/03/2025 4:10 PM EST) Troponin-T HS Gen5 <6 0 - 9 ng/L 05/03/2025 5:02 PM EST [facility] Blood (Blood) Venipuncture / Unknown 05/03/2025 4:10 PM EST 05/03/2025 4:42 PM EST [facility] LAB BLOOD BKR ORDERABLES Final R [facility] Performing Organization Address [facility] Co de Phone Number [address] [address] * CT CERVICAL SPINE WITHOUT CONTRAST (05/03/2025 [...] clinician's provided indication for this examination in Epic: * Head trauma, mod-severe TECHNIQUE: CTs of [...] clinician's provided indication for this examination in [facility]: *Head trauma, mod-severe TECHNIQUE: CTs of the [...] clinician's provided indication for this examination in [facility]: * Head trauma, mod-severe TECHNIQUE: CTs of [...] clinician's provided indication for this examination in [facility]: *Head trauma, mod-severe TECHNIQUE: CTs of the [...] spine. us Tania Paulson DO IMG CT HEAD/NECK Final Result * TSH with reflex (12/06/2023 6:02 AM EDT) TSH 1.24 0.27 - 4.20 uIU/mL [facility] Blood 12/06/2023 6:02 AM EDT 12/06/2023 6:09 AM EDT us Valencia Blas MD LAB BLOOD BKR ORDERABLES Fi nal Result Performing Organization Address [facility] Co de Phone Number [address] [address] * Hepatitis C antibody, qualitative (12/06/2023 6:02 AM EDT) HCV NON-REACTIV E NON-REACTI VE [facility] Blood 12/06/2023 6:02 AM EDT 12/06/2023 6:09 AM EDT us Valencia Blas MD LAB BLOOD BKR ORDERABLES Fi nal Result Performing Organization Address [facility] de Phone Number [address] [address] * Pap Smear (04/18/2021 12:00 AM EDT) 04/18/2021 04/19/2021 9:1 7 AM EDT Narrative SEE NARRATIVE - 04/27/2021 2:41 PM EDT [address] [address] Studio Producer: Raysa Simpson MD [facility] Cytology Report FINAL DIAGNOSIS A. PAP SMEAR (SUREPATH) CE: SPECIMEN ADEQUACY: Satisfactory for evaluation; transformation zone present. INTERPRETATION: NEGATIVE FOR INTRAEPITHELIAL LESION OR MALIGNANCY. Electronically Signed Out By: RODRIGO Guardado(ASCP) The Pap test is a screening test primarily for squamous cancers and precursors and has associated false-negative and false-positive results. New technologies such as liquid-based preparations may decrease but will not eliminate all false-negative results. Regular sampling and follow-up of unexplained clinical signs and symptoms are recommended to minimize false negative results. PROCEDURES/ADDENDA HPV Testing (Requested) Ordered Date: 04/19/2021 A. PAP SMEAR (SUREPATH) CE: Human Papilloma Virus Test Negative for high-risk human papillomavirus types 16, 18, 45 and the Other high risk probe set (Includes 31, 33, 35, 39, 51, 52, 56, 58, 59, 66, 68) by [employer] On[employer] HR-HPV analysis. Clinical correlation is advised. This HPV test was performed at [facility], [address] [place] [address]. This test has been FDA approved for SurePath cervical cytology specimens. The accuracy and precision of this test for all other specimen sources has been verified in the Cytopathology Laboratory of the [facility] and has not been cleared or approved by the U.S. Food and Drug Administration. Clinical correlation is advised. CLINICAL HISTORY Date of Last Menstrual Period: Not Provided Menstrual History: Unknown Other Clinical Conditions: Screening Pap SPECIMEN SOURCE A: PAP SMEAR (SUREPATH) CE Patient Name: RICKEY DONIN : 1980 (Age: 40) Sex: F Institution: [facility] Location: [facility] Date of Collection: 04/18/2021 Date of Reported: 04/27/2021 14:41 Results to: Tate Sanchez MD, BS Tate Sanchez MD CYTOLOGY ORDERABLES Final Res ult SEE NARRATIVE from Last 3 Months or Most Recently Relevant to Health Maintenance Insurance Equivalent DATA [employer] [place] [address] [place] [address] [place] [id number] [place] [address] [place] [address] [place] [address] [place] [address] [address] [employer]Y PARTNERSHIP ACO [facility] [employer] ACO Advance Directives For more information, please contact: [phone] (9AM - 5PM Doris/[facility], Friday-Friday) * Full Code (Latest Code Status on File) Date Activated Date Inactivated Comments 02/13/2024 6:13 AM Question Answer Comments Code Status Confirmed With: Patient * Full Code Date Activated Date Inactivated Comments 12/06/2023 2:33 AM 02/13/2024 6:13 AM Question Answer Comments Code Status Confirmed With: Patient Care Teams Software Quality Engineer Relationship Specialty Start Date End Date Neli Padilla MD [address] [place] [address] [email or web address] PCP - General Family Medicine 10/04/20 Chavez Hunter MD [email or web address] Historical LMR Provider 04/17/17 Additional Source Comments The information contained in this document represents components of the legal health record. It is not the complete legal health record.[facility]
--- OUTSIDE RECORDS SUMMARY | 2025-05-03 17:07 | XMS_ITS | Encounter Summary ---
Author Organization [facility] Address [address] [place] [address] Phone Care Team Providers Care Ski Patrol Director Name Role Phone Chavez Hunter MD Unavailable [email or web address] Neli Padilla MD Primary Care Provider Encounter Details Date Type Department Care Team (Late st Contact Info) Description 05/03/2025 Procedure Pass [facility], Ct Scan - [address] [address] Social History Tobacco Use Types Packs/Day Years [...] PM EST Celena Benites ma, RN * [place] Suicide Severity Rating Scale (Screener/Recent Self-Report) Question [...] Description 05/05/2025 3:40 PM EST Office Visit [facility] [address] [facility] [address] [place] [address] Neli Padilla MD [address] [address] [email or web address] documented as of this encounter Visit Diagnoses Not on filedocumented in this encounter Additional Health Concerns Assessment Noted Time PHQ-2 Depression Total Score: 2 01/04/20 21 7:54 AM EDT documented as of this encounter Care Teams Ski Patrol Director Relationship Specialty Start Date End Date Neli Padilla MD [address] [address] [email or web address] PCP - General Family Medicine 10/04/20 Chavez Hunter MD [email or web address] Historical LMR Provider 04/17/17 documented as of this encounter Additional Source Comments The information contained in this document represents components of the legal health record. It is not the complete legal health record.[facility]
--- OUTSIDE RECORDS SUMMARY | 2025-05-03 17:07 | XMS_ITS | Clinical Summary ---
Author Organization [facility] ity Address [address] [place] [address] Care Team Providers Care Car Dealer Name Role Phone Unavailable Primary Care Provider Unavailabl e Social History Tobacco Use Types Packs/Day Years Used Date Smoking Tobacco: Never Assessed Comments Unknown Sex and Gender Information Value Date Recorded Sex Assigned at Not on file Legal Sex Female 1:22 PM EST Gender Identity Not on file Sexual Orientation Not on file Plan of Treatment Health Maintenance Due Date Last Done Comments Breast Cancer Screening 1982 DTaP,Tdap,and Td Vaccines (1 - Tdap) 2001 Hepatitis B Vaccines (1 of 3 - 19+ 3-dose series) 2001 Cervical Cancer Screening: P ap Smear 11/02/2003 HPV Vaccines (1 - 3-dose SCD M series) 2009 Depression Screening 06/30/2024 COVID-19 Vaccine ( - 2023-2 5 season) 2025 Influenza Vaccine (#1) 2025 RSV Immunization Adult Patie nts (1 - 1-dose 75+ series) 2057 HIB Vaccines Aged Out No longer eligi ble based on patient's age to complete this topic Hepatitis A Vaccines Aged Out No long er eligible based on patient's age to complete this topic IPV Vaccines Aged Out No longer eligi ble based on patient's age to complete this topic MMR Vaccines Aged Out No longer eligi ble based on patient's age to complete this topic Meningococcal ACWY Vaccine Aged Out N o longer eligible based on patient's age to complete this topic Meningococcal B Vaccine Aged Out No l onger eligible based on patient's age to complete this topic Pneumococcal Vaccine: Pediat rics (0 to 5 Years) and At-Risk Patients (6 to 49 Years) Aged Out No longer eligible b ased on patient's age to complete this topic RSV Immunization Patients Un greta 20 months Aged Out No longer eligible b ased on patient's age to complete this topic Varicella Vaccines Aged Out No longer eligible based on patient's age to complete this topic
--- OUTSIDE RECORDS SUMMARY | 2025-05-03 17:08 | XMS_ITS | Encounter Summary ---
Author Organization [facility] Address [address] [place] [address] Phone Care Team Providers Care Position Classification Manager Name Role Phone Chavez Hunter MD Unavailable [email or web address] Neli Padilla MD Primary Care Provider [phone] Encounter Details Date Type Department Care Team (Late st Contact Info) Description 12/05/2023 Procedure Pass [facility], [address] [address] Social History Tobacco Use Types Packs/Day Years Used Date Smoking Tobacco: Every Day Cigarettes 0.3 15 Started: 09/2001; Last attempted to quit: 09/2016 Smokeless Tobacco: Never Alcohol Use Standard Drinks/Week Comments Yes 0 (1 standard drink = 0.6 oz pur e alcohol) Child or Family Care Answer Date Record [...] with a working camera? Not on file Comments No Sex and Gender Information Value Date Recorded Sex Assigned at Female 01/03/2021 8:09 AM EDT Legal Sex Female 9:18 PM EDT Gender Identity Female 01/03/2021 8:09 AM EDT Sexual Orientation Straight 01/03/2021 8: 09 AM EDT documented as of this encounter Functional Status * Calculated C-SSRS Risk Score (Lifetime/Recent) Answer Date of Assessment Author No Risk Indicated 12/05/2023 1:11 PM EDT Ebony Calderón RN * Delta Suicide Severity Rating Scale (Screener/Recent Self-Report) Question Answer Date of Assessment Author 1. Wish to be (Past 1 Month) No 024 1:11 PM EDT Ebony Calderón RN 2. Non-Specific Active Suici isabel Thoughts (Past 1 Month) No 12/05/2023 1:11 PM EDT Shey Cadlerón RN 6. Suicidal Behavior (Lifetime) No 4 1:11 PM EDT Ebony Calderón RN documented as of this encounter Plan of Treatment Upcoming Encounters Date Type Department Care Team (Late st Contact Info) Description 05/05/2025 3:40 PM EST Office Visit [facility] [address] [place] [address] Neli Padilla MD [address] [facility] [address] [place] [address] [email or web address] documented as of this encounter Visit Diagnoses Not on filedocumented in this encounter Additional Health Concerns Assessment Noted Time PHQ-2 Depression Total Score: 2 01/04/20 21 7:54 AM EDT documented as of this encounter Care Teams Position Classification Manager Relationship Specialty Start Date End Date Neli Padilla MD [address] [facility] [address] [place] [address] [email or web address] PCP - General Family Medicine 10/04/20 Chavez Hunter MD [email or web address] Historical LMR Provider 04/17/17 documented as of this encounter Additional Source Comments The information contained in this document represents components of the legal health record. It is not the complete legal health record.[facility]
--- OUTSIDE RECORDS SUMMARY | 2025-05-03 17:08 | XMS_ITS | Encounter Summary ---
Author Organization [facility] Address [address] [place] [address] Phone Care Team Providers Care Airport Guide Name Role Phone Chavez Hunter MD Unavailable [email or web address] Neli Padilla MD Primary Care Provider [phone] Encounter Details Date Type Department Care Team (Late st Contact Info) Description 12/05/2023 Procedure Pass [facility], [facility] Scan - [address] [id number] Social History Tobacco Use Types Packs/Day Years [...] 1:11 PM EDT Ebony Calderón RN * [place] Suicide Severity Rating Scale (Screener/Recent Self-Report) Question Answer Date of Assessment Author 1. Wish to be (Past 1 Month) No 024 1:11 PM EDT Ebony Calderón RN 2. Non-Specific Active Suici isabel Thoughts (Past 1 Month) No 12/05/2023 1:11 PM EDT Shey Calderón RN 6. Suicidal Behavior (Lifetime) No 4 1:11 PM EDT Ebony Calderón RN documented as of this encounter Plan of Treatment Upcoming Encounters Date Type Department Care Team (Late st Contact Info) Description 05/05/2025 3:40 PM EST Office Visit [facility] Primary Care [address] [facility] [address] [place] [address] Neli Padilla MD 15 [facility] [address] [place] [address] [email or web address] documented as of this encounter Visit Diagnoses Not on filedocumented in this encounter Additional Health Concerns Assessment Noted Time PHQ-2 Depression Total Score: 2 01/04/20 21 7:54 AM EDT documented as of this encounter Care Teams Airport Guide Relationship Specialty Start Date End Date Neli Padilla MD [address] [facility] [address] [place] [address] [email or web address] PCP - General Family Medicine 10/04/20 Chavez Hunter MD [email or web address] Historical LMR Provider 04/17/17 documented as of this encounter Additional Source Comments The information contained in this document represents components of the legal health record. It is not the complete legal health record.[facility]
--- OUTSIDE RECORDS SUMMARY | 2025-05-03 17:08 | XMS_ITS | Encounter Summary ---
Author Organization [facility] Address [address] [place] [address] Phone Care Team Providers Care Forming Press Operator Name Role Phone Chavez Hunter MD [facility] [email or web address] Neli Padilla MD Primary Care Provider [phone] Reason for Visit * Reason Onset Date Comments Pancreas/gallbladder issues 12/05/2023 Encounter Details Date Type Department Care Team ([facility] st Contact Info) Description 12/05/2023 Nurse Triage [facility] [address] [facility] [address] [place] [address] Neli Padilla MD [address] [facility] [address] [place] [address] [email or web address] Pancreas/gallbladder issues Social History Tobacco Use Types Packs/Day Years [...] 1:11 PM EDT Ebony Calderón RN * [place] Suicide Severity Rating Scale (Screener/Recent Self-Report) Question Answer Date of Assessment Author 1. Wish to be (Past 1 Month) No 024 1:11 PM EDT Ebony Calderón, GILDA 2. Non-Specific Active Suici isabel Thoughts (Past 1 Month) No 12/05/2023 1:11 PM EDT Shey Calderón RN 6. Suicidal Behavior (Lifetime) No 4 1:11 PM EDT Ebony Calderón, RN documented as of this encounter Progress Notes * Clarissa Del Cid RN - 12/05/2023 10:30 AM EDT S/W Monica. Pt reports this morning she woke up around 4am this morning with excruciating RUQ pain, was covered in sweat. Pain has been constant all morning, has tried tylenol, ibuprofen, rolaid antacid chews d/t Hx of GERD, heating pad and rest with no relief. Pt endorses Hx of intermittent RUQ pain, but reports this is worse and is not going away. Pt endorses severe nausea, vomited x1 this morning from pain already. She endorses the pain is now radiating around to her back. She is unsure if she should come in for a visit, go to ED. Advised at this time, there is concern for an acute issue, d/t excruciating pain, severe nausea, no relief from home remedies, should be seen in ED for prompt assessment and imaging. Pt states her friend will bring her to [facility], expect sent. Nurse Triage Encounter Note Reason for Triage Monica Don contacted office for Other Call Disposition Go To Ed Now Disposition Comments: Patient/caregiver understands and will follow disposition: Yes Protocols used: Abdominal Pain - Qwvfj-[id number]-Vb Initial Symptom Screening and Assessment IA Symptom Onset Less than 24 hours Symptom Severity Severe - unable to do normal activities Symptom Pattern Constant/continuous Aggravating factors or triggers Unsure Home Treatments OTC Medications; Heat; Rest Comments Antacids, tylenol, ibuprofen, heat, rest with NO relief Location? Back; Other Location Comments RUQ radiating to back Abdomen Symptoms (GI and ) Abdominal Symptoms Nausea/Vomiting; Other; Tenderness Cardiac History? No Injury to abdomen? No Weak or Dizzy? No Appliances such as Feeding tube, colostomy? No Care Advice Given Care Advice Patient/Caregiver understands and will follow care advice?: Yes, plans to follow advice Abdominal Pain - [id number]-[id number]-OB Clarissa Del Cid RN FriDec 05, 2023 10:42 AM Disposition and First Aid GO TO ED NOW: * You need to be seen in the Emergency Department. * Go to the ED at [facility]. * Leave now. Drive carefully. Patient will call back with additional questions or if symptoms change or worsen Clarissa Del Cid RN Reason for Disposition and Assessment Reason for Disposition SEVERE abdominal pain (e.g., excruciating) Protocols used: Abdominal Pain - Xiber-[id number]-XM * Alma Pham - 12/05/2023 10:27 AM EDT Pt LVM On triage line stating she would like to be seen or discuss gallbladder/pancreas issues. Pt stated she is unsure what she is experiencing. Please contact and advise. Central Support Director Of Mobile Marketing (Please do not reply to this user; this inbox is not monitored.) Thank you. documented in this encounter Plan of Treatment Upcoming Encounters Date Type Department Care Team (Late st Contact Info) Description 05/05/2025 3:40 PM EST Office Visit [facility] [address] [place] [id number] Neli Padilla MD [address] [place] [phone] [email or web address] documented as of this encounter Visit Diagnoses Not on filedocumented in this encounter Additional Health Concerns Assessment Noted Time PHQ-2 Depression Total Score: 2 01/04/20 21 7:54 AM EDT documented as of this encounter Care Teams Forming Press Operator Relationship Specialty Start Date End Date Neli Padilla MD [address] [place] [phone] [email or web address] PCP - General Family Medicine 10/04/20 Chavez Hunter MD [email or web address] Historical LMR Provider 04/17/17 documented as of this encounter Additional Source Comments The information contained in this document represents components of the legal health record. It is not the complete legal health record.[facility]
== END 2025-05-03 14:45 | disposition home or self-care (01) ==
PROVIDERS: Visit Provider Physician Assistant
DX: R55 Syncope and collapse (principal); H54.7 Unspecified visual loss

== ENCOUNTER → 2025-05-03 14:05 | Outpatient (BNVA) | payer OTHER, SELFPAY | PROVIDERS: Visit Provider Physician Assistant | DX: R42 Dizziness and giddiness (principal); R55 Syncope and collapse; R07.9 Chest pain, unspecified; H54.7 Unspecified visual loss; Z91.81 History of falling | CPT/HCPCS: 99202 ==